=== PATIENT | female | born 1955 | race Caucasian/White ===

== ENCOUNTER 2017-09-13 09:41 | Emergency (ER) | END 2017-09-13 12:38 | disposition home or self-care (01) ==

== ENCOUNTER 2017-09-16 00:46 | Emergency (ER) | END 2017-09-16 06:24 | disposition home or self-care (01) ==

== ENCOUNTER 2017-09-22 15:42 | Emergency (ER) | END 2017-09-23 00:02 | disposition home or self-care (01) ==

== ENCOUNTER 2018-10-04 06:13 | Day surgery (SDC) | payer OTHER ==
[2018-09-30 10:59] VITALS: BMI 21.7
[2018-10-04] VITALS (11 sets, daily range): BP systolic 107–137; BP diastolic 59–66; PULSE 58–68; RESP 16–24; Ht 157.5 cm; Wt 52.9 kg
[~2018-10-04] VITALS: Ht 157.5 cm; Wt 52.9 kg
[~2018-10-04 06:13] MED LIST: ALPR0.25 PO; AMLO-147 PO; ATOR10TA65 PO; CIPR500T4 PO; DIPH1TAB PO; MECL12.574 PO; METR-122 PO; METR500T PO; ONDA4TAB14 PO; RANI150T35 PO
[2018-10-04] MEDS ORDERED: DIC20 ORAL (08:06)
[2018-10-04] MEDS ORDERED: FAMO20TA18 PO (08:06)
--- NOTE | 2018-10-04 08:58 | PREAC ---
Date/Time of Note Date/Time of Note DATE: 10/04/18 TIME: 08:57 Anesthesia Eval and Record Evaluation Time Pre-Procedure Interview DATE: 10/04/18 TIME: 08:57 Age 63 Sex female NPO: 8 hrs Preoperative diagnosis endometrial thickening in ultrasound Planned procedure d and c Past Medical History Past Medical History: Includes Cardio: HTN, Dyslipidemia GI: GERD (denies symptoms today) Surgery & Anesthesia Issues No known issue (pshx d&c and colonoscopy) Meds Anticoagulation: No Beta Vidal within 24 hr: No Reason Beta Vidal not given: Pt. not on B-Vidal Reported Medications Famotidine* (Famotidine*) 20 Mg Tablet, 20 MG PO DAILY PRN for GASTROINTESTINAL UPSET, #30 TAB 10/04/18 Dicyclomine HCl (Dicyclomine HCl) 20 Mg Tablet, 20 MG ORAL TID PRN for INTESTINAL SPASMS/CRAMPING 10/04/18 Atorvastatin Calcium (Atorvastatin Calcium) 10 Mg Tablet, 10 MG PO QHS, #30 TAB 09/22/17 Amlodipine Besylate* (Amlodipine Besylate*) 10 Mg Tablet, 10 MG PO DAILY, #30 TAB 09/22/17 Discontinued Reported Medications Diphenoxylate HCl/Atropine (Lomotil 2.5-0.025 mg Tablet) 1 Each Tablet, 1 TAB PO Q6H PRN for DIARRHEA, TAB 09/22/17 Metronidazole* (Metronidazole*) 500 Mg Tablet, 500 MG PO TID for 10 Days, TAB start date 09/19/17 for 10 days 09/22/17 Ciprofloxacin Hcl* (Ciprofloxacin Hcl*) 500 Mg Tablet, 500 MG PO BID for 10 Days, #14 TAB sratr date 09/19/17 for 10 days 09/22/17 Discontinued Scripts Ondansetron (Ondansetron Odt) 4 Mg Tab.rapdis, 4 MG PO Q6H PRN for NAUSEA AND/OR VOMITING, #10 TAB Prov:AUSTIN GARBER. DO 09/22/17 Metronidazole* (Flagyl*) 500 Mg Tablet, 500 MG PO TID for 14 Days, TAB Prov:MARY GARBERSTFRANCISCOS A. DO 09/22/17 Ciprofloxacin Hcl* (Ciprofloxacin Hcl*) 500 Mg Tablet, 500 MG PO BID for 14 Days, TAB Prov:AUSTIN GARBER A. DO 09/22/17 Alprazolam* (Xanax*) 0.25 Mg Tablet, 0.25 MG PO Q8H PRN for ANXIETY, #10 TAB Prov:ARNALDO WALLEREL Lucía 09/16/17 Ondansetron (Ondansetron Odt) 4 Mg Tab.rapdis, 4 MG PO Q6H PRN for NAUSEA AND/OR VOMITING, #10 TAB Prov:BRENDA WALLER. 09/16/17 Ranitidine Hcl* (Zantac*) 150 Mg Tablet, 150 MG PO BID PRN for EPIGASTRIC PAIN, #30 TAB Prov:KANDACEBRENDA FRITZ. 09/16/17 Meclizine Hcl* (Antivert*) 12.5 Mg Tab, 25 MG PO Q6H PRN for DIZZINESS, #20 TAB Prov:JULIANNE ALCANTARA MD 09/13/17 Meds reviewed: Yes Allergies Coded Allergies: No Known Allergy (Unverified , 10/04/18) Allergies Reviewed: Yes Labs/Studies Labs Reviewed: Reviewed by anesthesiologist test: N/A Studies: ECG, CXR Pre-procedure Exam Last vitals Vital Signs Date Temp Pulse Resp B/P (MAP) Pulse Ox O2 O2 Flow FiO2 Time Delivery Rate 10/04/18 98.0 68 16 137/66 100 Room Air 07:33 (89) Airway: Adequate mouth opening, Adequate thyromental dist Mallampati: Mallampati II Teeth: Normal (partials are out) Lung: Normal Heart: Normal ASA Physical Status ASA physical status: 2 Emergency: None Planned Anesthetic General/MAC: LMA Planned Pain Management Parenteral pain med, Local by surgeon Pre-operative Attestations Prior to commencing anesthesia and surgery, the patient was re-evaluated, there was verification of: *The patient's identity *The results of appropriate recent lab work and preoperative vital signs *The above evaluation not changing prior to induction *Anesthetic plan, risk benefits, alternative and complications discussed with patient/family; questions answered; patient/family understands, accepts and wishes to proceed. JENNIFER YOUSSEF Oct 04, 2018 08:58
[2018-10-04] MEDS ORDERED: METOCLOPRAMIDE 10 MG INJ ONE (09:37)
[2018-10-04] MEDS ORDERED: ONDANSETRON 4 MG INJ ONE (09:37)
[2018-10-04] MEDS ORDERED: PROPOFOL 20 ML ONE (09:37)
[2018-10-04] MEDS ORDERED: FENTAnyl 50 MCG/ML VIAL ONE (09:37)
[2018-10-04] MEDS ORDERED: CEFAZOLIN 1 GM INJ ONE (09:37)
--- NOTE | 2018-10-04 09:45 | PREOPHP ---
DATE OF ADMISSION: 10/04/2018 HISTORY OF PRESENT ILLNESS: This is a 63-year-old lady, 5, para 4 with 1 . Her last normal menstrual period was at the age of 52. She was admitted for dilation and curettage, hysteros copy and suction curettage. This patient had an ultrasound done and the ultrasound revealed endometr ial thickening. Endometrial biopsy was attempted but the cervix was stenotic, so she was admitted fo r dilation and curettage, hysteroscopy and suction curettage. The procedures were explained to the p atient and she understood everything totally. The risks, benefits, and alternatives were discussed w ith her as well. PAST MEDICAL HISTORY: No history of diabetes, TB, asthma. The patient has a history of high blood p ressure, gastroenteritis and gastroesophageal reflux disease. ALLERGIES: NO ALLERGIES. PAST SURGICAL HISTORY: She had breast surgery, benign, in 1982. FAMILY HISTORY: High blood pressure. Mother has heart disease and father has diabetes. MAIL ORDER BILLER: She is 5, para 4 with 4 normal deliveries. REVIEW OF SYSTEMS: CARDIOVASCULAR: No chest pains. RESPIRATORY: No cough. GASTROINTESTINAL: No diarrhea, no vomiting. GENITOURINARY: No dysuria. PHYSICAL EXAMINATION: GENERAL: Reveals a conscious, coherent lady and in no acute distress. VITAL SIGNS: Her blood pressure 120/80, pulse rate 80 per minute, respirations 16 per minute. BREASTS, HEART AND LUNGS: Within normal limits. ABDOMEN: Soft. No organomegaly. PELVIC: Revealed the cervix to be firm, uterus of normal size, and adnexa were negative for masses. RECTAL: Confirmed the pelvic findings. EXTREMITIES: No pedal edema. ADMITTING DIAGNOSES: Endometrial thickening, rule out endometrial hyperplasia and menopause. PLAN: The patient was planned to have the above procedure. Dictated By: LUIGI GALLAGHER MD NS/NTS Conf#: [id number] DID#: [id number] CC: LUIGI GALLAGHER MD;*EndCC*
[2018-10-04] MEDS ORDERED: HYDROmorphONE 1 MG/5 ML IV SYRINGE IV PRN ×3 (10:00)
[2018-10-04] MEDS ORDERED: DIPHENHYDRAMINE 50 MG INJ IV PRN (10:00)
[2018-10-04] MEDS ORDERED: LABETALOL HCL 20MG INJ IV PRN (10:00)
[2018-10-04] MEDS ORDERED: MEPERIDINE 25 MG INJ IV PRN (10:00)
[2018-10-04] MEDS ORDERED: hydrALAzine 20 MG INJ IV PRN (10:00)
[2018-10-04] MEDS ORDERED: OXYCODONE/ACETAMINOPHEN (5/325) TAB PO PRN ×2 (10:00)
[2018-10-04] MEDS ORDERED: KETOROLAC 30 MG INJ IV PRN (10:00)
[2018-10-04] MEDS ORDERED: ONDANSETRON 4 MG INJ IV PRN (10:00)
[2018-10-04] MEDS ORDERED: FENTAnyl 50 MCG/ML VIAL IV PRN ×3 (10:00)
--- NOTE | 2018-10-04 10:32 | SIPON ---
Date/Time of Note Date/Time of Note DATE: 10/04/18 TIME: 10:30 Operative Report Preoperative Diagnosis ENDOMETRIAL THICKENING Postoperative Diagnosis ENDOMETRIAL THICKENING PENDING PATHOLOGY Operation/Procedure Performed D&C HYSTEROSOCPY SUCTION CURETTAGE Surgeon see signature line medical assistant secretary SCTUB TECH Anesthesia: general Estimated blood loss: minimal Transfusion Required none Specimen ECC EMC SUCTION CURETTAGE Grafts/Implants none Complications none LUIGI GALLAGHER MD Oct 04, 2018 10:32
[2018-10-04] MEDS ORDERED: ACETAMINOPHEN 325 MG TAB PO PRN (11:00)
--- NOTE | 2018-10-05 07:16 | OPR ---
DATE OF OPERATION: 10/04/2018 PREOPERATIVE DIAGNOSIS: Endometrial thickening, rule out endometrial hyperplasia and menopause. POSTOPERATIVE DIAGNOSIS: Endometrial thickening, rule out endometrial hyperplasia and menopause, reyna rubin pathology report. SURGEON: Luigi Scott MD COMPUTATIONAL SCIENCES PROFESSOR: Sb wheatley. ANESTHESIA: General. OPERATION PERFORMED: Fractional dilatation and curettage, hysteroscopy and suction curettage. OPERATIVE TECHNIQUE: Under general anesthesia, the patient was prepped and draped in the usual fashi on for vaginal surgery. Pelvic exam under anesthesia revealed the cervix to be firm, uterus of luigi l size, and adnexa were negative for masses. Then, the heavy weight vaginal retractor was put in susan ce and the anterior lip of the cervix was grasped with an Allis clamp. Endocervical dilatation up to Hegar 6 was proceeded. Uterus was sounded to about 2 and 1/2 inches. Then the hysteroscope was ins erted inside the uterine cavity and connected with the light source. There were no polyps nor fibroi ds. The uterus was distended with normal saline. There were no polyps nor fibroids seen. Endocervi priya curettage was done and a small amount of tissue was obtained. Endometrial curettage was done and a small amount of tissue was obtained. Suction tip size 6 was inserted inside the uterine cavity an d suction curettage was done. A small amount of tissue was obtained. The uterus was intact during a nd after the procedure. The patient tolerated the procedure well. Estimated blood loss was minimal. Vital signs were stable during and after the procedure. Dictated By: LUIGI MOSS/NTS Conf#: [id number] DID#: [id number]
--- NOTE | 2018-10-05 07:18 | PAC ---
Date/Time of Note Date/Time of Note DATE: 10/05/18 TIME: 07:18 Post-Anesthesia Notes Post-Anesthesia Note Last documented vital signs Vital Signs Date Temp Pulse Resp B/P (MAP) Pulse Ox O2 O2 Flow FiO2 Time Delivery Rate 10/04/18 97.4 64 18 117/64 98 Room Air 11:05 (81) 10/04/18 8.0 10:19 Activity: WNL Respiratory function: WNL Cardiovascular function: WNL Mental status: Baseline Pain reasonably controlled: Yes Hydration appropriate: Yes Nausea/Vomiting absent: No KILEY SCHULTZ MD Oct 05, 2018 07:18
== END 2018-10-04 12:15 | disposition home or self-care (01) ==
LOC: SDS 06:13
PROVIDERS: ATTEND Obstetrics & Gynecology
DX: R93.89 Abnormal findings on diagnostic imaging of other specified body structures (principal); I10 Essential (primary) hypertension; E78.5 Hyperlipidemia, unspecified
CPT/HCPCS: 58558; 84702; 85610; 85730; 86850; 86900; 86901; 88305; J0690; J2405; J2765; J3010; Z7610; 84703